=== PATIENT | female | born 1955 | race Caucasian/White ===

== ENCOUNTER → 2019-03-27 | Outpatient (REF) | payer SELFPAY | LOC: M LAB LCGH 12:04 | PROVIDERS: ATTEND Physician Assistant | DX: D21.21 Benign neoplasm of connective and other soft tissue of right lower limb, including hip (principal) ==

== ENCOUNTER 2020-06-26 09:03 | Observation (INO) | payer SELFPAY ==
[~2020-06-26] VITALS: Ht 165.1 cm; Wt 90.2 kg
[2020-06-26] MEDS ORDERED: LEVOTAB10 PO (09:27)
[2020-06-26] MEDS ORDERED: FLUTISP NARES (09:27)
[2020-06-26 09:51] LABS: BASO % 0.5 % (0.0-1.0); EOS # 0.1 10^3/uL (0.0-0.5); EOS % 1.5 % (0.0-3.0); HEMATOCRIT 45.2 % (36.0-47.0); HEMOGLOBIN 14.5 g/dl (12.0-15.5); LYMPH # 2.1 10^3/uL (1.5-5.0); LYMPH % 32.4 % (24.0-44.0); MEAN CORPUSCULAR HEMOGLOBIN 28.7 pg (27.0-33.0); MEAN CORPUSCULAR HGB CONC 32.1 g/dl (32.0-36.5); MEAN CORPUSCULAR VOLUME 89.3 fl (80.0-96.0); MONO # 0.4 10^3/uL (0.0-0.8); MONO % 6.8 % (0.0-5.0); NEUTROPHILS # 3.8 10^3/uL (1.5-8.5); NEUTROPHILS % 58.6 % (36.0-66.0); PLATELET COUNT, AUTOMATED 252 10^3/uL (150-450); RED BLOOD COUNT 5.06 10^6/uL (4.00-5.40); WHITE BLOOD COUNT 6.5 10^3/uL (4.0-10.0)
--- NOTE | 2020-06-26 09:54 | REP ---
INDICATION: CHEST PAIN. COMPARISON: None. TECHNIQUE: AP portable seated exam FINDINGS: The lung grande are well inflated. CP angles are sharply defined with no gross effusion. There is no lateral pleural thickening or apical scarring. I see no parenchymal mass, nodule or definite acute infiltrate. Heart size normal for technique. The aorta and airway intact. No vascular redistribution or edema. Bony thorax without acute finding. No free air under the diaphragm. IMPRESSION: 1. No acute cardiopulmonary change. <Electronically signed by Baldev Yadav > 06/26/20 [id number]
[2020-06-26 09:56] LABS: VENOUS BASE EXCESS -0.9 (-2.0-2.0); VENOUS HCO3 24.3 MEQ/L (23.0-27.0); VENOUS O2 SATURATION 93.3 % (60.0-80.0); VENOUS PARTIAL PRESSURE CO2 42.1 mmHg (38.0-50.0); VENOUS PARTIAL PRESSURE O2 66.9 mmHg (30.0-50.0); VENOUS PH 7.379 UNITS (7.330-7.430); VENOUS STANDARD HCO3 23.6 MEQ/L; VENOUS TOTAL CO2 25.6 MEQ/L (24.0-28.0)
[2020-06-26 10:23] LABS: BILIRUBIN,DIRECT 0.1 MG/DL (0.0-0.2); BILIRUBIN,TOTAL 0.7 MG/DL (0.2-1.0); FREE T4 0.93 NG/DL (0.76-1.46); MAGNESIUM LEVEL 2.1 MG/DL (1.8-2.4); THYROID STIMULATING HORMONE 1.43 uIU/ML (0.358-3.740); TOTAL PROTEIN 6.9 GM/DL (6.4-8.2)
[2020-06-26] MEDS ORDERED: ACET-897 PO (11:06)
[2020-06-26] MEDS ORDERED: OMEP1CAP73 PO (11:06)
[2020-06-26] MEDS ORDERED: ISOVUE-370 76% 100ML VIAL As Ordered ONE (11:15)
--- NOTE | 2020-06-26 11:48 | REP ---
INDICATION: CP. Chest pain. COMPARISON: Comparison is made with today's portable chest x-ray.. TECHNIQUE: Contrast dose: 75 ML of Isovue [address] technique: Helical scanning is acquired and overlapping 1.5 mm and contiguous 3 mm axial images are reformatted. In addition, maximum intensity projection and multiplanar re-formation images are generated in sagittal and coronal imaging projections. FINDINGS: There is good opacification of the pulmonary arterial tree. There is no vessel cut off or filling defect seen to suggest pulmonary embolus. There is no evidence of pulmonary embolus on maximum intensity projection or multiplanar reformations images. There is vascular calcification including left coronary artery vascular calcification. No hilar or mediastinal mass or adenopathy is observed. The lung grande are essentially clear. There are a few small peripheral bulla lie in the right lower lobe posteriorly. No pulmonary nodule or mass lesion is observed. There are innumerable low-density lesions in the liver most of which are quite small. The 2 largest of these are in the dome of the liver in the right lobe. These are small cysts adjacent to 1 another measuring 19 and 22 mm in greatest diameter respectively. The visualized upper abdominal structures are otherwise unremarkable. IMPRESSION: No CT evidence of pulmonary embolus. No evidence of aortic dissection or aneurysm. Some vascular calcification is noted. There are innumerable low-density liver lesions, most of which are compatible with cysts. 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 Consider MRI scanning of the liver for further evaluation. <Electronically signed by Damien Moreno > 06/26/20 [id number]
[2020-06-26] MEDS ORDERED: ACETAMINOPHEN 500 MG TAB PO PRN (12:45)
--- NOTE | 2020-06-26 14:36 | HPEPDOC ---
General Date of Admission Jun 26, 2020 at 09:04 Date of Service: Jun 26, 2020 Chief Complaint The patient is a 64-year-old female admitted with a reason for visit of Bradycardia Near Syncope. Source: Patient History of Present Illness Mrs. Blakely is a 64 year old female here with bradycardia and near syncope. In the past few months's, she has been having symptoms of near syncope. She has been having intermittent narrowing of vision and nausea. She also has been having dyspnea on exertion. She has had two Holter monitors which one was normal and one demonstrated bigeminy per patient report. She obtained a fit bit and wears it on her wrist. Today, she had an exacerbation of her symptoms including narrowing of her vision and her fit bit recorded a heart rate in the 30s. She came to the ED. While here, tele has been normal sinus in the 70s. Electrolytes are within normal. She is not having symptoms at this time. Otherwise, she is concerned due to a strong family history of heart disease. Mother had 12 cardiac stents placed. Father when he was 68yo and had heart disease as well. Father's sister (her aunt) had a bypass at the age of 48. Home Medications Scheduled Fluticasone Propionate (Fluticasone Propionate) 16 Gm [place].susp, 1 SPRAY NARES DAILY, (Reported) Levocetirizine Dihydrochloride (Levocetirizine Dihydrochloride) 5 Mg Tablet, 5 MG PO DAILY, (Reported) Omeprazole (Omeprazole) 20 Mg Capsule.dr, 20 MG PO DAILY, (Reported) Scheduled PRN Acetaminophen (Tylenol Extra Strength) 500 Mg Tablet, 1,000 MG PO QID PRN for PAIN / FEVER, (Reported) Allergies Coded Allergies: No Known Allergies (Verified Allergy, Unknown, 06/26/20) Past Medical History Medical History 1. GERD 2. Allergies Surgical History 1. Colonoscopy/Endoscopy 2. 3x C. section 3. left hip replacement/right shoulder repair A-FIB/CHADSVASC A-FIB History Current/History of A-Fib/PAF?: No Review of Systems Constitutional: Denies: Chills, Fever Eyes: Reports: Vision change (Vision dims when she is having a presyncope epis ode) ENT: Reports: Head Aches; Denies: Sore Throat Skin: Denies: Rash Pulmonary: Denies: Dyspnea, Cough Cardiovascular: Denies: Chest Pain, Palpitations Gastrointestinal: Reports: Nausea (When she is having a presyncopal episode); Denies: Abdominal Pain Genitourinary: Denies: Dysuria Hematologic: Denies: Bruising Musculoskeletal: Reports: Neck Pain Physical Examination General Exam: Positive: Alert, Cooperative Eye Exam: Positive: EOMI; Negative: Sclera icteric ENT Exam: Positive: Atraumatic Neck Exam: Positive: Supple Chest Exam: Positive: Clear to auscultation; Negative: Rales, Rhonchi, Wheezing Heart Exam: Positive: Rate Normal, Regular Rhythm Abdomen Exam: Positive: Normal bowel sounds, Soft; Negative: Tenderness Extremity Exam: Negative: Edema Neuro Exam: Positive: Normal Speech, Cranial Nerves 3-12 NL Psych Exam: Positive: Mental status NL, Anxiety Vital Signs Vital Signs Date Time Temp Pulse Resp B/P (MAP) Pulse Ox O2 Delivery O2 Flow Rate FiO2 06/26/20 13:30 70 154/75 (101) 95 06/26/20 10:45 18 Room Air 06/26/20 09:04 97.9 Laboratory Data Labs 24H Laboratory Tests 2 06/26/20 09:32: Immature Granulocyte % (Auto) 0.2, Neutrophils (%) (Auto) 58.6, Lymphocytes (%) (Auto) 32.4, Monocytes (%) (Auto) 6.8H, Eosinophils (%) (Auto) 1.5, Basophils (%) (Auto) 0.5, Neutrophils # (Auto) 3.8, Lymphocytes # (Auto) 2.1, Monocytes # (Auto) 0.4, Eosinophils # (Auto) 0.1, Basophils # (Auto) 0.0, Nucleated Red Blood Cells % (auto) 0.0, POC Troponin I (Misc) 0.01, Blood Gas Bicarbonate Standard 23.6, Venous Blood pH 7.379, Venous Blood Partial Pressure CO2 42.1, Venous Blood Partial Pressure O2 66.9H, Venous Blood Total Carbon Dioxide 25.6, Venous Blood HCO3 24.3, Venous Blood Oxygen Saturation 93.3H, Venous Blood Base Excess -0.9, Magnesium Level 2.1, Total Bilirubin 0.7, Direct Bilirubin 0.1, Aspartate Amino Transf (AST/SGOT) 13, Alanine Aminotransferase (ALT/SGPT) 24, Alkaline Phosphatase 53, WJ-Xcd-V-Type Natriuretic Peptide 136H, Total Protein 6.9, Albumin 4.0, Albumin/Globulin Ratio 1.4, Lipase 116, Thyroid Stimulating Hormone (TSH) 1.430, Free Thyroxine 0.93 06/26/20 09:45: POC Glucose (Misc Panel) 107H, POC Sodium (Misc Panel) 141, POC Potassium (Misc Panel) 3.8, POC Chloride (Misc Panel) 104, POC Total CO2 (Misc Panel) 27.0, POC Blood Urea Nitrogen (Misc Panel 22, POC Ionized Calcium (Misc Panel) 4.6, POC Creatinine (Misc Panel) 0.8, POC Hematocrit (Misc Panel) 44.0 CBC/BMP Laboratory Tests 06/26/20 09:32 Assessment/Plan Mrs. Blakely is a 64 year old female here with bradycardia and near syncope. Her fit bit monitor has demonstrated bradycardia, but has not been caught on Holter monitor as of yet. We will obtain an echocardiogram and monitor her on tele. On discharge, she would need to follow up with Cardiology and possibly obtain an event monitor or loop recorder Plan / VTE VTE Prophylaxis Ordered?: Yes Plan Plan 1. Pre-syncope -May be secondary to bradycardia. Demonstrated on fit bit -Tele monitoring and echocardiogram -If tele demonstrates bradycardia, we will need to try to get an EKG at that time 2. Rhinitis -Continue fluticasone 3. GERD -Continue omeprazole 4. Significant family history of cardiac disease -Mother had 12 cardiac stents placed, Fathered at 68yo and had heart disease. Father's sister had CABG when she was 48 yo -Will need to follow up with cardiology outpatient -Will try to obtain Holter monitor results. 5. DVT ppx -SCD and TEDs KAROL ELIZALDE DO Jun 26, 2020 14:36
[2020-06-26 15:13] VITALS: BP 163/95
[2020-06-26 22:00] VITALS: BP 134/83
--- NOTE | 2020-06-27 02:00 | ECGEPIP ---
[facility] Test Date: 2020-06-26 Pat Name: RAGHAVENDRA ENRIQUE Department: Room: [place] [address] Gender: Female Cvicu Rn: : 1955 Requested By: GRADY PIZANO Order Number: [id number] Reading MD: Xaveir Du Measurements Intervals [place] Rate: 75 P: 5 IN: 157 QRS: 6 QRSD: 114 T: 129 QT: 402 QTc: 451 Interpretive Statements SINUS RHYTHM WITH OCCASIONAL VENTRICULAR PREMATURE COMPLEXES MODERATE INTRAVENTRICULAR CONDUCTION DELAY Nonspecific ST-T wave abnormalities with slight evolution from tracing done 914 o on same date Electronically Signed on 06-27-2020 2:00:06 EST by Xavier Du
[2020-06-27 05:57] LABS: HEMATOCRIT 41.6 % (36.0-47.0); HEMOGLOBIN 13.4 g/dl (12.0-15.5); MEAN CORPUSCULAR HEMOGLOBIN 28.8 pg (27.0-33.0); MEAN CORPUSCULAR HGB CONC 32.2 g/dl (32.0-36.5); MEAN CORPUSCULAR VOLUME 89.3 fl (80.0-96.0); PLATELET COUNT, AUTOMATED 219 10^3/uL (150-450); RED BLOOD COUNT 4.66 10^6/uL (4.00-5.40); WHITE BLOOD COUNT 5.1 10^3/uL (4.0-10.0)
[2020-06-27 06:00] VITALS: BP 135/82
[2020-06-27 06:24] LABS: BLOOD UREA NITROGEN 20 MG/DL (7-18); CALCIUM LEVEL 8.7 MG/DL (8.8-10.2); CARBON DIOXIDE LEVEL 29 MEQ/L (21-32); CHLORIDE LEVEL 110 MEQ/L (98-107); CREATININE FOR GFR 0.73 MG/DL (0.55-1.30); GLOMERULAR FILTRATION RATE > 60.0 (>45); GLUCOSE, FASTING 92 MG/DL (70-100); POTASSIUM SERUM 3.9 MEQ/L (3.5-5.1); SODIUM LEVEL 142 MEQ/L (136-145)
[2020-06-27] MEDS ORDERED: FLUTICASONE PROP 0.05% NASAL SPRAY 16 GM (FLONASE) NARES SCH (09:00)
[2020-06-27] MEDS ORDERED: OMEPRAZOLE 20 MG CAP PO SCH (09:00)
--- NOTE | 2020-06-27 09:03 | ECGEPIP ---
[facility] - [facility] Test Date: 2020-06-26 Pat Name: RAGHAVENDRA ENRIQUE Department: Room: - Gender: Female Compound Filler: Thalia MELCHOR : 1955 Requested By: Juani Lafleur Order Number: [id number] Reading MD: Juani Lafleur Measurements Intervals [place] Rate: 84 P: 50 SC: 160 QRS: -6 QRSD: 116 T: 3 QT: 378 QTc: 449 Interpretive Statements SINUS RHYTHM WITH FREQUENT VENTRICULAR PREMATURE COMPLEXES MODERATE INTRAVENTRICULAR CONDUCTION DELAY NONSPECIFIC ST & T-WAVE ABNORMALITY ABNORMAL RHYTHM ECG No prior Electronically Signed on 06-27-2020 9:03:34 EST by Juani Lafleur
--- NOTE | 2020-06-27 13:29 | ECHO ---
DATE OF PROCEDURE: 06/26/2020 Age: 64 Gender: Female Height: 165 cm Weight: 91 kg REFERRING PHYSICIAN: Jose R Peña DO INDICATION: Syncope. MEASUREMENTS: IVS 1.1 cm LV 5.0 cm LVPW 1.1 cm LA 3.9 cm Aorta 3.1 cm IVC 1.7 cm DOPPLER MEASUREMENT Mitral E wave velocity 57 Mitral A wave 85 E prime septal 4.8, E prime lateral 6.5 Left atrial volume index 22 FINDINGS: This study is of acceptable technical quality. Patient is in sinus rhythm. Left ventricle is of normal size and systolic function, estimated left ventricular ejection fraction (LVEF) around 60%. I cannot completely rule out subtle wall motion abnormalities. Right ventricle is normal size and systolic function. Both atria appear normal. All four cardiac valves were reasonably well seen and appear normal. No pericardial effusion is noted. Inferior vena cava is normal size and collapses with inspiration indicative of normal central venous pressure. Aortic root is normal. Limited views of aortic arch and abdominal aorta also appear normal. Doppler interrogation revealed no aortic stenosis or insufficiency and same applies for mitral valve. There is trace tricuspid insufficiency with calculated normal pulmonary artery pressure. Pulmonic valve is functionally component. Mitral inflow pattern and tissue Doppler imaging of the mitral annulus revealed grade 1 diastolic dysfunction. CONCLUSIONS: 1. Study is of acceptable technical quality, underlying sinus rhythm. 2. Normal left ventricular (LV) size and systolic function, grade 1 diastolic dysfunction. 3. No significant valvular disease. 4. Normal central venous pressure and normal pulmonary artery pressure. 5. No obvious findings to explain syncopal event. [facility]
--- NOTE | 2020-06-27 19:26 | DS.PDOC ---
Discharge Summary General Date of Admission Jun 26, 2020 at 09:04 Date of Discharge Jun 27, 2020 Attending Physician: KAROL ELIZALDE DO Discharge Summary PROCEDURES PERFORMED DURING STAY: None ADMITTING DIAGNOSES: 1. Pre-syncope 2. Bradycardia 3. Rhinitis 4. GERD 5. Significant family history of cardiac disease DISCHARGE DIAGNOSES: 1. Pre-syncope 2. Bradycardia 3. Rhinitis 4. GERD 5. Significant family history of cardiac disease COMPLICATIONS/CHIEF COMPLAINT: Bradycardia Near Syncope. HISTORY OF PRESENT ILLNESS: Mrs. Blakely is a 64 year old female here with bradycardia and near syncope. In the past few months's, she has been having symptoms of near syncope. She has been having intermittent narrowing of vision and nausea. She also has been having dyspnea on exertion. She has had two Holter monitors which one was normal and one demonstrated bigeminy per patient report. She obtained a fit bit and wears it on her wrist. Today, she had an exacerbation of her symptoms including narrowing of her vision and her fit bit recorded a heart rate in the 30s. She came to the ED. While here, tele has been normal sinus in the 70s. Electrolytes are within normal. She is not having symptoms at this time. Otherwise, she is concerned due to a strong family history of heart disease. Mother had 12 cardiac stents placed. Father when he was 68yo and had heart disease as well. Father's sister (her aunt) had a bypass at the age of 48. HOSPITAL COURSE: Overnight, the lowest heart rate was 58. On her fit bit, the lowest was 56. Tried to obtain an EKG at that time, but was not able to catch the bradycardia. She did not have any syncopal episodes. While at home, she would have these episodes every day. Recommended that she talk with her PCP about event monitor or loop recorder. Otherwise, she felt well. Denies any fever, chills, chest pain, dyspnea, abdominal pain, or dysuria. DISCHARGE MEDICATIONS: Please see below. ALLERGIES: Please see below. PHYSICAL EXAMINATION ON DISCHARGE: VITAL SIGNS: Please see below. GENERAL: Comfortable, in no apparent distress. HEENT: Head normocephalic/atraumatic, EOMI, sclera clear. NECK: Supple, no JVD. RESPIRATORY: Lungs clear to auscultation bilaterally, no rales, wheeze or rhonchi. CARDIOVASCULAR: Regular rate and rhythm. ABDOMEN: Soft, nontender, no guarding or rebound tenderness. Normal bowel sounds. MUSCLE SKELETAL: Muscle strength 5/5 in all extremities. NEUROLOGICAL: CN 312 grossly intact, no focal deficits noted. PSYCHOLOGICAL: Normal mood and affect LABORATORY DATA: Please see below. IMAGING: CTA chest No CT evidence of pulmonary embolus. No evidence of aortic dissection or aneurysm. Some vascular calcification is noted. There are innumerable low-density liver lesions, most of which are compatible with cysts. 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 Consider MRI scanning of the liver for further evaluation. Chest x-ray 1. No acute cardiopulmonary change. PROGNOSIS: Stable ACTIVITY: As tolerated. DIET: As tolerated DISCHARGE PLAN: Home DISCHARGE INSTRUCTIONS: 1. Keep your appointment with your PCP and screwmaker automatic. ITEMS TO FOLLOWUP ON ON OUTPATIENT: 1. Echocardiogram results DISCHARGE CONDITION: Stable. Total time spent on discharge planning, discharge summary, and medication reconciliation: 35 minutes Vital Signs/I&Os Vital Signs Date Time Temp Pulse Resp B/P (MAP) Pulse Ox O2 Delivery O2 Flow Rate FiO2 06/27/20 06:00 97.1 65 20 135/82 (99) 95 06/26/20 15:13 Room Air I&O- Last 24 Hours up to 6 AM 06/27/20 06:00 Intake Total 960 ml Output Total 0 ml Balance 960 ml Laboratory Data Labs 24H Laboratory Tests 2 06/26/20 20:32: Troponin I < 0.02 06/27/20 05:32: Nucleated Red Blood Cells % (auto) 0.0, Anion Gap 3L, Glomerular Filtration Rate > 60.0, Calcium Level 8.7L 06/27/20 09:43: Lab Scanned Report Miscellaneous Lab CBC/BMP Laboratory Tests 06/27/20 05:32 Discharge Medications Scheduled Fluticasone Propionate (Fluticasone Propionate) 16 Gm [place].susp, 1 SPRAY NARES DAILY, (Reported) Levocetirizine Dihydrochloride (Levocetirizine Dihydrochloride) 5 Mg Tablet, 5 MG PO DAILY, (Reported) Omeprazole (Omeprazole) 20 Mg Capsule.dr, 20 MG PO DAILY, (Reported) Scheduled PRN Acetaminophen (Tylenol Extra Strength) 500 Mg Tablet, 1,000 MG PO QID PRN for PAIN / FEVER, (Reported) Allergies Coded Allergies: No Known Allergies (Verified Allergy, Unknown, 06/26/20) KAROL ELIZALDE DO Jun 27, 2020 19:26
== END 2020-06-27 12:29 ==
LOC: M ED 09:03 → M ED INP 09:04 → ENRESERV 13:22 → M MSPAV 15:14
PROVIDERS: ADMIT Internal Medicine; ATTEND Internal Medicine
DX: R55 Syncope and collapse (principal); R00.1 Bradycardia, unspecified; J31.0 Chronic rhinitis; K21.9 Gastro-esophageal reflux disease without esophagitis; Z82.49 Family history of ischemic heart disease and other diseases of the circulatory system; Z79.899 Other long term (current) drug therapy
CPT/HCPCS: 36415; 71045; 71275; 80047; 80048; 80076; 82803; 83690; 83735; 83880; 84439; 84443; 84484; 85025; 85027; 93005; 93041; 93306; 99285; Q9967